=== PATIENT | female | born 1985 | race Caucasian/White ===

== ENCOUNTER 2019-03-08 13:08 | Emergency (ER) | payer OTHER ==
[2019-03-08] MEDS ORDERED: NS 1,000 ML IV ONE (13:37)
[2019-03-08] MEDS ORDERED: DIAZEPAM 10 MG/2 ML SYR IVP ONE (13:38)
--- NOTE | 2019-03-08 13:43 | EDPHY ---
H & P Stated Complaint: Vertigo Time Seen by Provider: 03/08/19 13:25 HPI/ROS: CHIEF COMPLAINT: Vertigo HISTORY OF PRESENT ILLNESS: Patient is a 33-year-old healthy female who comes to the emergency department complaining of vertigo that began abruptly this morning when she woke up from bed. 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 She felt well when she went to bed. She slept in a different room those well ventilated. She woke up this morning and felt fine while lying in bed but is center she sat up felt vertiginous. She did not feel like she was to faint or blackout. No chest pain or palpitations. No shortness of breath. Mild nausea but no vomiting or diarrhea. No fevers. No recent illness. She laid back down and felt better but her symptoms still persist any time she tries to sit up or stand up. She denies any focal weakness or deficits. No speech deficits. Her states that she tends to pick at her ear with Naren pins. She has not had any bleeding or drainage. No headache, no altered mental status. Severity: Severe Modifying factors: Improves with lying flat REVIEW OF SYSTEMS: Constitutional: denies: chills, fever, recent illness, recent injury EENTM: See above denies: blurred vision, double vision, nose congestion Respiratory: denies: cough, shortness of breath Cardiac: denies: chest pain, irregular heart rate, lightheadedness, palpitations Gastrointestinal/Abdominal: denies: abdominal pain, diarrhea, nausea, vomiting, blood streaked stools Genitourinary: denies: dysuria, frequency, hematuria, pain Musculoskeletal: denies: joint pain, muscle pain Skin: denies: lesions, rash, jaundice, bruising Neurological: See HPI denies: headache, numbness, paresthesia, tingling, weakness Hematologic/Lymphatic: denies: blood clots, easy bleeding, easy bruising Immunologic/allergic: denies: HIV/AIDS, transplant 10 systems reviewed and negative except as noted EXAM: GENERAL: Well-appearing, well-nourished and in no acute distress. HEAD: Atraumatic, normocephalic. EYES: Pupils equal round and reactive to light, extraocular movements intact, sclera anicteric, conjunctiva are normal. ENT: TMs normal, nares patent, oropharynx clear without exudates. Moist mucous membranes. NECK: Normal range of motion, supple without lymphadenopathy or JVD. LUNGS: Breath sounds clear to auscultation bilaterally and equal. No wheezes rales or rhonchi. HEART: Regular rate and rhythm without murmurs, rubs or gallops. ABDOMEN: Soft, nontender, normoactive bowel sounds. No guarding, no rebound. No masses appreciated. BACK: No CVA tenderness, no spinal tenderness, step-offs or deformities EXTREMITIES: Normal range of motion, no pitting or edema. No clubbing or cyanosis. NEUROLOGICAL: Very slight nystagmus to the right with gaze evaluation. Normal hints exam. No corrective saccade with head impulse testing however she is asymptomatic at the time of the test. Hallpike maneuver did not elicit her symptoms or worsen them. Cranial nerves II through XII grossly intact. Normal speech, normal gait. 5/5 strength, normal movement in all extremities, normal sensation, normal reflexes normal finger to toe, normal [id number]. PSYCH: Normal mood, normal affect. SKIN: Warm, dry, normal turgor, no visible rashes or lesions. Exam Limitations: No limitations - Personal History LMP (Females 10-55): 15-21 Days Ago Current Tetanus Diphtheria and Acellular Pertussis (TDAP): Yes Tetanus Vaccine Date: 2016 - Medical/Surgical History Hx Asthma: No Hx Chronic Respiratory Disease: No Hx Diabetes: No Hx Cardiac Disease: No Hx Renal Disease: No Hx Cirrhosis: No Hx Alcoholism: No Hx HIV/AIDS: No Hx Splenectomy or Spleen Trauma: No Other PMH: Med hx-"Fatty liver",Chron's and Celiac. Surg-wisdom teeth - Family History Significant Family History: No pertinent family hx - Social History Smoking Status: Never smoked Alcohol Use: None Constitutional: Initial Vital Signs Temperature (C) 37.0 C 03/08/19 13:15 Heart Rate 75 03/08/19 13:15 Respiratory Rate 16 03/08/19 13:15 Blood Pressure 134/80 H 03/08/19 13:15 O2 Sat (%) 99 03/08/19 13:15 O2 Delivery Mode Room Air Allergies/Adverse Reactions: Celiac Allergy (Uncoded 03/08/19 13:22) Home Medications: Medication Instructions Recorded Tobramycin 0.3% [Tobrex 0.3%] 2 drops EACHEYE QID #1 opht.btl 11/08/15 Amoxicillin/Clavulanate Pot 875 mg PO BID 10 Days tab 02/22/16 [Augmentin 875Mg] Diazepam [Valium 5 MG (*)] 5 mg PO TID PRN #10 tab 03/08/19 Meclizine HCl [Meclizine HCl 25 mg 25 mg PO BID PRN #20 tab 03/08/19 (RX,OTC)] Medical Decision Making ED Course/Re-evaluation: 2:50 p.m. the patient is feeling much better. Her vertigo has improved. She still feels slightly vertiginous when she sits up and she does have nystagmus primarily to the right. It does fatigue. She would prefer to go home and sleep rather than sleep here. We offered further observation but she declined. She is requesting a prescription for Valium and will also give her p.r.n. Antivert. She is happy with this plan. We discussed indications for returning. We discussed follow-up with ENT. Differential Diagnosis: Partial list of the Differential diagnosis considered include but were not limited to; benign positional vertigo, vestibular neuritis as and although unlikely based on the history and physical exam, I also considered CVA, dissection, aneurysm, tumor, seizure, arrhythmia. I discussed these differential diagnoses and the plan with the patient as well as the usual and expected course. The patient understands that the diagnosis is provisional and that in medicine we are not always correct and that further workup is often warranted. Usual and customary warnings were given. All of the patient's questions were answered. The patient was instructed to return to the emergency department should the symptoms at all worsen or return, otherwise to followup with the physician as we discussed. - Data Points Medications Given: Discontinued Medications Diazepam (Valium) 5 mg IVP EDNOW ONE Stop: 03/08/19 13:39 Last Admin: 03/08/19 14:09 Dose: 5 mg Diphenhydramine HCl (Benadryl Injection) 25 mg IVP EDNOW ONE Stop: 03/08/19 13:38 Last Admin: 03/08/19 14:01 Dose: 25 mg Sodium Chloride (Ns) 1,000 mls @ 0 mls/hr IV ONCE ONE; Wide Open PRN Reason: Protocol Stop: 03/08/19 13:38 Last Admin: 03/08/19 13:55 Dose: 1,000 mls Point of Care Test Results: CBC CBC Collection Date 03/08/19 CBC Collection Time 13:50 WBC 5.21 RBC 4.97 HGB 15.2 HCT 45.9 PLT 217 Neut # 2.98 Neut 57.1 LYMPH # 1.74 LYMPH 33.4 MCV 92.4 Chemistry 03/08/19 13:57 POC Sodium 138 mEq/L mEq/L (135-145) POC Potassium 3.6 mEq/L mEq/L (3.3-5.0) POC Chloride 103.0 mEq/L mEq/L (97-110) POC Total CO2 27 mEq/L mEq/L (22-31) POC BUN 13 mg/dL mg/dL (7-23) POC Creatinine 0.9 mg/dL mg/dL (0.6-1.0) POC Glucose 98 mg/dL mg/dL (70-100) POC Calcium 9.1 mg/dL mg/dL (8.5-10.4) Departure - Departure Disposition: Home, Routine, Self-Care Clinical Impression: Benign paroxysmal positional vertigo Qualifiers: Laterality: right Qualified Code(s): H81.11 - Benign paroxysmal vertigo, right ear Condition: Fair Instructions: Diazepam (By mouth), Benign Paroxysmal Positional Vertigo (ED) Referrals: KALEY BARILLAS [Primary Care Provider] - As per Instructions Starla Lepe PA [Physician Folding Machine [employer]eder] - 2-3 days, if not improved Stand Alone Forms: Work Excuse Prescriptions: Diazepam [Valium 5 MG (*)] 5 mg PO TID PRN #10 tab PRN Reason: Vertigo Meclizine HCl [Meclizine HCl 25 mg (RX,OTC)] 25 mg PO BID PRN #20 tab PRN Reason: Vertigo nondrowsy
[2019-03-08 14:57] VITALS: BP 115/74
== END 2019-03-08 14:55 | disposition home or self-care (01) ==
LOC: CED 13:08
DX: H81.11 Benign paroxysmal vertigo, right ear (principal); E86.9 Volume depletion, unspecified
CPT/HCPCS: 80048-ER; 85025-QW-ER; 96361-ER; 96374-ER; 96375-ER; 99284-ER; J1200; J3360